=== PATIENT | male | born 1995 | race Caucasian/White ===

== ENCOUNTER 2024-09-25 22:22 | Emergency (ER) | payer SELFPAY ==
[2024-09-26] MEDS: Ketorolac 30 MG/ML SDV IM ONE (01:00)
[2024-09-26] MEDS: Diphtheria,Pertussis(Acell),Tetanus Vaccine 0.5 ML Syringe IM ONE (02:19)
== END 2024-09-26 03:00 | disposition home or self-care (01) ==
LOC: JD.ED 22:22
DX: T23.141A Burn of first degree of multiple right fingers (nail), including thumb, initial encounter (principal); Z23 Encounter for immunization; X08.8XXA Exposure to other specified smoke, fire and flames, initial encounter; Y93.89 Activity, other specified
CPT/HCPCS: 16020; 73130; 90471; 90715; 96372; 99283; A9270; J1885; 99282